=== PATIENT | female | born 1980 | race Caucasian/White ===

== ENCOUNTER 2023-08-31 17:01 | Emergency (ER) | payer MEDICAID, SELFPAY ==
[~2023-08-31] VITALS: Ht 162.6 cm; Wt 86.1 kg
[2023-08-31] MEDS: AUGMENTIN 875 MG TAB PO ONE (18:48)
[2023-08-31] MEDS: predniSONE 20 MG TAB PO ONE (18:48)
[2023-08-31] MEDS ORDERED: AMOX875T2 PO (18:51)
[2023-08-31] MEDS ORDERED: PRED20TA PO (18:51)
[2023-08-31 18:58] VITALS: BP 137/79; TEMP 99; O2SAT 99
== END 2023-08-31 18:59 | disposition home or self-care (01) ==
LOC: EDBD 17:01 → M ED 17:01
DX: J36 Peritonsillar abscess (principal); H66.91 Otitis media, unspecified, right ear; F17.200 Nicotine dependence, unspecified, uncomplicated; Z79.2 Long term (current) use of antibiotics; Z79.52 Long term (current) use of systemic steroids
CPT/HCPCS: 87880; 99283; J7512

== ENCOUNTER → 2023-09-28 | Outpatient (REF) | payer SELFPAY ==
[~2023-09-28] MED LIST: AMOX875T2 PO; PRED20TA PO
[2023-09-28 17:39] LABS: THYROID STIMULATING HORMONE 3.525 uIU/ML (0.55-4.78)
[2023-09-28 17:40] LABS: TOTAL 25(OH) VITAMIN D 37.4 NG/ML (20.0-100.0)
[2023-09-28 17:43] LABS: ALBUMIN 3.5 G/DL (3.2-5.2); ALKALINE PHOSPHATASE 86 U/L (46-116); ALT/SGPT 19 U/L (7.0-40); AST/SGOT 19 U/L (<34); BILIRUBIN,TOTAL 0.2 MG/DL (0.3-1.2); BLOOD UREA NITROGEN 15 MG/DL (9-23); CARBON DIOXIDE LEVEL 29 MMOL/L (20-31); CHLORIDE LEVEL 105 MMOL/L (98-107); CHOLESTEROL LEVEL 205 MG/DL (<200); CREATININE FOR GFR 0.74 MG/DL (0.55-1.30); GLOMERULAR FILTRATION RATE > 60.0 (>58); GLUCOSE, FASTING 83 MG/DL (60-100); HDL CHOLESTEROL 35.3 MG/DL (>40); LDL CHOLESTEROL 145.1 MG/DL (<100); NON-HDL-C 169.7 MG/DL; POTASSIUM SERUM 4.6 MMOL/L (3.5-5.1); SODIUM LEVEL 138 MMOL/L (136-145); TOTAL PROTEIN 6.9 G/DL (5.7-8.2); TRIGLYCERIDES LEVEL 123 MG/DL (<150)
[2023-09-28 17:44] LABS: HEMOGLOBIN A1c 5.2 % (4.0-6.0)
[2023-09-28 17:49] LABS: CREATININE, URINE 18.1 MG/DL
[2023-09-28 17:51] LABS: MALB URINE SIEMENS < 3.0 MG/L; MAU/CREAT RATIO 16.5 MCG/MG (0.0-30.0)
== END ==
LOC: M LAB REF 16:13
PROVIDERS: ATTEND Physician Assistant
DX: I10 Essential (primary) hypertension (principal); E66.9 Obesity, unspecified; E55.9 Vitamin D deficiency, unspecified

== ENCOUNTER 2024-05-02 04:34 | Emergency (ER) | payer OTHER, SELFPAY ==
[~2024-05-02] VITALS: Ht 162.6 cm; Wt 70.1 kg
[2024-05-02 04:39] VITALS: BP 157/97; TEMP 96.7; O2SAT 97
== END 2024-05-02 06:33 | disposition home or self-care (01) ==
LOC: M ED 04:34
DX: J06.9 Acute upper respiratory infection, unspecified (principal); I10 Essential (primary) hypertension; M19.90 Unspecified osteoarthritis, unspecified site

== ENCOUNTER 2024-06-29 07:21 | Emergency (ER) | payer OTHER ==
[~2024-06-29] VITALS: Ht 160 cm; Wt 66.9 kg
[2024-06-29] MEDS ORDERED: BUPR1FIL (07:35)
[2024-06-29] MEDS ORDERED: LISI20TA33 (07:35)
[2024-06-29] MEDS ORDERED: FLUO40CA (07:35)
[2024-06-29] MEDS ORDERED: FLUO-365 (07:35)
[2024-06-29] MEDS: ONDANSETRON 4MG ORAL DISINTEGRATING TAB PO ONE (09:23)
[2024-06-29 09:37] LABS: BASO % 0.3 % (0.0-1.0); EOS # 0.3 10^3/uL (0.0-0.5); EOS % 2.3 % (0.0-3.0); HEMATOCRIT 43.5 % (36.0-47.0); HEMOGLOBIN 13.8 g/dl (12.0-15.5); LYMPH # 1.8 10^3/uL (1.5-5.0); MEAN CORPUSCULAR HEMOGLOBIN 26.7 pg (27.0-33.0); MEAN CORPUSCULAR HGB CONC 31.7 g/dl (32.0-36.5); MEAN CORPUSCULAR VOLUME 84.3 fl (80.0-96.0); MONO # 0.7 10^3/uL (0.0-0.8); MONO % 5.4 % (2.0-8.0); NEUTROPHILS # 9.3 10^3/uL (1.5-8.5); NEUTROPHILS % 76.7 % (36.0-66.0); PLATELET COUNT, AUTOMATED 230 10^3/uL (150-450); RED BLOOD COUNT 5.16 10^6/uL (4.00-5.40); WHITE BLOOD COUNT 12.1 10^3/uL (4.0-10.0)
[2024-06-29 10:04] LABS: LIPASE 27 U/L (12-53)
[2024-06-29 10:06] LABS: ALBUMIN 3.5 G/DL (3.2-5.2); ALKALINE PHOSPHATASE 73 U/L (35-104); ALT/SGPT 24 U/L (7.0-40); AST/SGOT 29 U/L (<34); BILIRUBIN,DIRECT 0.2 MG/DL (<0.4); BILIRUBIN,TOTAL 0.4 MG/DL (0.3-1.2); BLOOD UREA NITROGEN 10 MG/DL (9-23); CALCIUM LEVEL 8.4 MG/DL (8.5-10.1); CARBON DIOXIDE LEVEL 28 MMOL/L (20-31); CHLORIDE LEVEL 105 MMOL/L (98-107); CREATININE FOR GFR 0.72 MG/DL (0.55-1.30); GLOMERULAR FILTRATION RATE > 90.0 (>58); GLUCOSE, FASTING 86 MG/DL (60-100); HCG, SERUM QUALITATIVE NEGATIVE (NEGATIVE); POTASSIUM SERUM 3.7 MMOL/L (3.5-5.1); SODIUM LEVEL 139 MMOL/L (136-145); TOTAL PROTEIN 7.2 G/DL (5.7-8.2)
[2024-06-29] MEDS ORDERED: BENZ200C70 PO (10:34)
[2024-06-29] MEDS ORDERED: ONDA-282 PO (10:34)
[2024-06-29] MEDS ORDERED: AMOX875T2 PO (10:34)
[2024-06-29] MEDS: BENZONATATE 100MG CAPSULE PO ONE (10:59)
[2024-06-29] MEDS: AUGMENTIN 875 MG TAB PO ONE (10:59)
[2024-06-29 11:00] VITALS: BP 131/67; TEMP 97.5; O2SAT 99
== END 2024-06-29 11:09 | disposition home or self-care (01) ==
LOC: M ED 07:21
DX: R05.9 Cough, unspecified (principal); H66.001 Acute suppurative otitis media without spontaneous rupture of ear drum, right ear; F41.9 Anxiety disorder, unspecified; F17.200 Nicotine dependence, unspecified, uncomplicated; I10 Essential (primary) hypertension; Z79.2 Long term (current) use of antibiotics; Z79.83 Long term (current) use of bisphosphonates; Z79.899 Other long term (current) drug therapy